=== PATIENT | female | born 1935 | race African-American/Black ===

== ENCOUNTER → 2017-10-08 | Outpatient (CLI) | payer MEDICARE, OTHER ==
--- NOTE | 2017-10-08 11:42 | CT ---
EXAMINATION TYPE: CT brain wo con DATE OF EXAM: 10/08/2017 COMPARISON: NONE HISTORY: Memory loss CT DLP: 961 mGycm Automated exposure control for dose reduction was used. FINDINGS: Moderate generalized degenerative change. There is diffuse periventricular hypoattenuation which is n onspecific but most typical remote microvascular ischemia. No midline shift. No acute hemorrhage. Berny varium intact. Intracranial atherosclerotic changes noted. IMPRESSION: THERE ARE GENERALIZED DEGENERATIVE CHANGE WITH DIFFUSE ABNORMAL DENSITY THROUGHOUT THE WHITE MATTER A ND A PATTERN WHICH IS NONSPECIFIC BUT MOST TYPICAL OF REMOTE WHITE MATTER ISCHEMIA.
== END | disposition home or self-care (01) ==
LOC: RADCTMAIN 11:16
PROVIDERS: ATTEND Internal Medicine
DX: G31.89 Other specified degenerative diseases of nervous system (principal); R90.82 White matter disease, unspecified
CPT/HCPCS: 70450

== ENCOUNTER → 2019-02-22 | Outpatient (CLI) | payer MEDICARE, OTHER ==
--- NOTE | 2019-02-22 17:27 | MR ---
EXAMINATION TYPE: MR brain wo/w con DATE OF EXAM: 02/22/2019 COMPARISON: Correlation CT 10/08/2017 HISTORY: 82-year-old female confusion, Memory loss, dementia, tumor TECHNIQUE: Multiplanar, multisequence images of the brain and brainstem were acquired before and aft er administration of 5 mL IV Gadavist. Diffusion weighted imaging is performed. FINDINGS: The technologist notes that the patient was confused and claustrophobic, fast brain protocol was util ized. No evidence for acute infarction, hemorrhage, mass, mass effect, midline shift, herniation, effacemen t of basal cisterns, or extra-axial fluid collection. There is moderate generalized supratentorial volume loss and mild ventricular prominence likely secon usman to central cerebral atrophy. T2/FLAIR weighted sequences show moderate to severe patchy and confluent white white matter change in both cerebral hemispheres involving the periventricular, deep, and subcortical regions. Major intracranial flow voids are intact. Midline structures demonstrate normal morphology. The craniocervical junction is normal. Post contrast images demonstrate no evidence of pathologic enhancement. Dural venous sinuses are pat ent. The visualized sinuses are clear and the globes are intact. IMPRESSION: 1. Moderate atrophy, similar to CT of 10/08/2017. 2. Patchy and confluent bright white matter change likely representing moderate to severe burden of c hronic small vessel ischemic disease. 3. No acute intracranial abnormality or enhancing intracranial lesion seen.
== END ==
LOC: RADMRIMAIN 13:42
PROVIDERS: ATTEND Psychiatry & Neurology Neurology
DX: C71.9 Malignant neoplasm of brain, unspecified (principal); I99.8 Other disorder of circulatory system
CPT/HCPCS: 70553; A9585

== ENCOUNTER 2021-07-19 15:48 | Emergency (ER) | payer MEDICARE, OTHER ==
--- NOTE | 2021-07-19 16:11 | ED ---
General Adult HPI - General Chief complaint: Urogenital Stated complaint: Blood in urine Time Seen by Provider: 07/19/21 15:53 Source: patient Mode of arrival: ambulatory Limitations: no limitations - History of Present Illness Initial comments: 86-year-old female with a history of dementia and renal disease presents to the emergency department, accompanied by guardian, for evaluation of blood in her urine 2 days. Patient denies abdominal pain, urinary discomfort, frequency, and urgency. Patient's guardian supplies context, details, and history of illness; reports good oral intake. Denies fever, chills, nausea, vomiting, back and flank pain. She does have a history of renal disease and is scheduled to see the heating element repairer next week. - Related Data Home Medications Medication Instructions Recorded Confirmed Atenolol [Tenormin] 50 mg PO DAILY 07/19/21 07/19/21 Cholecalciferol [Vitamin D3 (25 25 mcg PO DAILY 07/19/21 07/19/21 Mcg = 1000 Iu)] Donepezil [Aricept] 10 mg PO DAILY 07/19/21 07/19/21 Hydrochlorothiazide 12.5 mg PO DAILY 07/19/21 07/19/21 [hydroCHLOROthiazide] acetaZOLAMIDE [acetaZOLAMIDE ER] 500 mg PO BID 07/19/21 07/19/21 amLODIPine [Norvasc] 10 mg PO DAILY 07/19/21 07/19/21 calcitrioL [Calcitriol] 0.25 mcg PO TU 07/19/21 07/19/21 Previous Rx's Medication Instructions Recorded Cephalexin [Keflex] 500 mg PO Q6HR #40 cap 07/19/21 Allergies Allergy/AdvReac Type Severity Reaction Status Date / Time No Known Allergies Allergy Verified 07/19/21 16:46 Review of Systems ROS Statement: Those systems with pertinent positive or pertinent negative responses have been documented in the HPI. ROS Other: All systems not noted in ROS Statement are negative. Past Medical History Past Medical History: Dementia, Hypertension, Renal Disease History of Any Multi-Drug Resistant Organisms: None Reported Past Surgical History: No Surgical Hx Reported Past Psychological History: No Psychological Hx Reported Smoking Status: Never smoker Past Alcohol Use History: None Reported Past Drug Use History: None Reported General Exam Limitations: no limitations General appearance: alert, in no apparent distress, other (Patient is a poor historian with a history of dementia.) ENT exam: Present: normal exam, normal oropharynx, mucous membranes moist Respiratory exam: Present: normal lung sounds bilaterally. Absent: respiratory distress, wheezes, rales, rhonchi, stridor Cardiovascular Exam: Present: regular rate, normal rhythm, normal heart sounds. Absent: systolic murmur, diastolic murmur, rubs, gallop, clicks GI/Abdominal exam: Present: soft, normal bowel sounds. Absent: distended, tenderness, guarding, rebound, rigid Neurological exam: Present: alert Psychiatric exam: Present: normal affect, normal mood Skin exam: Present: warm, dry, intact, normal color Course Vital Signs 07/19/21 07/19/21 15:50 16:54 Temperature 98.4 F Pulse Rate 99 70 Respiratory 18 16 Rate Blood Pressure 189/113 O2 Sat by Pulse 98 99 Oximetry Medical Decision Making - Medical Decision Making 86-year-old female with a history of renal disease is evaluated for painless hematuria, 2 days in duration. No significant physical exam findings. Labs reviewed, elevation and BUN and creatinine appear baseline for patient. Urine shows moderate amount of blood with more white blood cells than red blood cells, and presence of bacteria therefore this is felt to be an infectious process. Patient will be discharged home on antibiotic and instructed to follow up with primary care provider for recheck in the next 1-2 days. Return parameter was discussed with patient's caregiver and guardian at bedside. She verbalizes understanding and agrees with this plan. This patient's case was discussed with my attending Dr. Isidro. - Lab Data Result diagrams: 07/19/21 16:42 07/19/21 16:42 Lab Results 07/19/21 07/19/21 07/19/21 Range/Units 16:42 16:42 16:42 WBC 4.2 (3.8-10.6) k/uL RBC 3.77 L (3.80-5.40) m/uL Hgb 11.7 (11.4-16.0) gm/dL Hct 36.2 (34.0-46.0) % MCV 95.8 (80.0-100.0) fL MCH 31.1 (25.0-35.0) pg MCHC 32.4 (31.0-37.0) g/dL RDW 13.3 (11.5-15.5) % Plt Count 166 (150-450) k/uL MPV 7.6 Neutrophils % 58 % Lymphocytes % 33 % Monocytes % 6 % Eosinophils % 1 % Basophils % 1 % Neutrophils # 2.4 (1.3-7.7) k/uL Lymphocytes # 1.4 (1.0-4.8) k/uL Monocytes # 0.2 (0-1.0) k/uL Eosinophils # 0.1 (0-0.7) k/uL Basophils # 0.0 (0-0.2) k/uL PT (9.0-12.0) sec INR (<1.2) APTT (22.0-30.0) sec Sodium 141 (137-145) mmol/L Potassium 4.2 (3.5-5.1) mmol/L Chloride 112 H (98-107) mmol/L Carbon Dioxide 23 (22-30) mmol/L Anion Gap 6 mmol/L BUN 19 H (7-17) mg/dL Creatinine 1.21 H (0.52-1.04) mg/dL Est GFR (CKD-EPI)AfAm 47 (>60 ml/min/1.73 sqM) Est GFR (CKD-EPI)NonAf 41 (>60 ml/min/1.73 sqM) Glucose 104 H (74-99) mg/dL Calcium 8.9 (8.4-10.2) mg/dL Total Bilirubin 0.4 (0.2-1.3) mg/dL AST 31 (14-36) U/L ALT 23 (4-34) U/L Alkaline Phosphatase 38 (38-126) U/L Total Protein 6.2 L (6.3-8.2) g/dL Albumin 3.0 L (3.5-5.0) g/dL Urine Color Light Yellow Urine Appearance Cloudy H (Clear) Urine pH 5.5 (5.0-8.0) Ur Specific [place] 1.014 (1.001-1.035) Urine Protein Negative (Negative) Urine Glucose (UA) Negative (Negative) Urine Ketones Negative (Negative) Urine Blood Moderate H (Negative) Urine Nitrite Negative (Negative) Urine Bilirubin Negative (Negative) Urine Urobilinogen <2.0 (<2.0) mg/dL Ur Leukocyte Esterase Large H (Negative) Urine RBC 16 H (0-5) /hpf Urine WBC 169 H (0-5) /hpf Urine WBC Clumps Few H (None) /hpf Ur Squamous Epith Cells 1 (0-4) /hpf Urine Bacteria Rare H (None) /hpf Urine Mucus Rare H (None) /hpf 07/19/21 Range/Units 17:58 WBC (3.8-10.6) k/uL RBC (3.80-5.40) m/uL Hgb (11.4-16.0) gm/dL Hct (34.0-46.0) % MCV (80.0-100.0) fL MCH (25.0-35.0) pg MCHC (31.0-37.0) g/dL RDW (11.5-15.5) % Plt Count (150-450) k/uL MPV Neutrophils % % Lymphocytes % % Monocytes % % Eosinophils % % Basophils % % Neutrophils # (1.3-7.7) k/uL Lymphocytes # (1.0-4.8) k/uL Monocytes # (0-1.0) k/uL Eosinophils # (0-0.7) k/uL Basophils # (0-0.2) k/uL PT 10.2 (9.0-12.0) sec INR 0.9 (<1.2) APTT 22.4 (22.0-30.0) sec Sodium (137-145) mmol/L Potassium (3.5-5.1) mmol/L Chloride (98-107) mmol/L Carbon Dioxide (22-30) mmol/L Anion Gap mmol/L BUN (7-17) mg/dL Creatinine (0.52-1.04) mg/dL Est GFR (CKD-EPI)AfAm (>60 ml/min/1.73 sqM) Est GFR (CKD-EPI)NonAf (>60 ml/min/1.73 sqM) Glucose (74-99) mg/dL Calcium (8.4-10.2) mg/dL Total Bilirubin (0.2-1.3) mg/dL AST (14-36) U/L ALT (4-34) U/L Alkaline Phosphatase (38-126) U/L Total Protein (6.3-8.2) g/dL Albumin (3.5-5.0) g/dL Urine Color Urine Appearance (Clear) Urine pH (5.0-8.0) Ur Specific [place] (1.001-1.035) Urine Protein (Negative) Urine Glucose (UA) (Negative) Urine Ketones (Negative) Urine Blood (Negative) Urine Nitrite (Negative) Urine Bilirubin (Negative) Urine Urobilinogen (<2.0) mg/dL Ur Leukocyte Esterase (Negative) Urine RBC (0-5) /hpf Urine WBC (0-5) /hpf Urine WBC Clumps (None) /hpf Ur Squamous Epith Cells (0-4) /hpf Urine Bacteria (None) /hpf Urine Mucus (None) /hpf Disposition Clinical Impression: Hematuria, Acute cystitis with hematuria Disposition: HOME SELF-CARE Condition: Stable Instructions (If sedation given, give patient instructions): Urinary Tract Infection in Women (ED), Hematuria (ED) Additional Instructions: Increase fluids and follow-up with Dr. Bergman as scheduled on the . Return to the emergency department with any new, worsening, or concerning symptoms. Prescriptions: Cephalexin [Keflex] 500 mg PO Q6HR #40 cap Is patient prescribed a controlled substance at d/c from ED?: No Referrals: Cecil Dick MD [Primary Care Provider] - 1-2 days Time of Disposition: 18:33
[2021-07-19 16:51] LABS: Basophils % (A) 1 %; Eosinophils # (A) 0.1 k/uL (0-0.7); Eosinophils % (A) 1 %; HCT 36.2 % (34.0-46.0); HGB 11.7 gm/dL (11.4-16.0); Lymphocytes # (A) 1.4 k/uL (1.0-4.8); Lymphocytes % (A) 33 %; MCH 31.1 pg (25.0-35.0); MCHC 32.4 g/dL (31.0-37.0); MCV 95.8 fL (80.0-100.0); Mean Platelet Volume 7.6; Monocytes # (A) 0.2 k/uL (0-1.0); Monocytes % (A) 6 %; Neutrophils # (A) 2.4 k/uL (1.3-7.7); Neutrophils % (A) 58 %; Platelet Count 166 k/uL (150-450); RBC 3.77 m/uL (3.80-5.40); RDW 13.3 % (11.5-15.5); WBC 4.2 k/uL (3.8-10.6)
[2021-07-19 16:59] LABS: Calcium 8.9 mg/dL (8.4-10.2); Potassium 4.2 mmol/L (3.5-5.1); Total Bilirubin 0.4 mg/dL (0.2-1.3); Total Protein 6.2 g/dL (6.3-8.2)
[2021-07-19 17:01] VITALS: RESP 16
[2021-07-19 17:52] LABS: Appearance,Urine Cloudy (Clear); Bacteria,Urine Rare /hpf; Bilirubin,Urine Negative (Negative); Blood,Urine Moderate (Negative); Color,Urine Light Yellow; Glucose,Urine (UA) Negative (Negative); Ketones,Urine Negative (Negative); Leukocyte Esterase,Urine Large (Negative); Mucus,Urine Rare /hpf; Nitrite,Urine Negative (Negative); PH, Urine 5.5 (5.0-8.0); Protein,Urine Negative (Negative); RBC,Urine 16 /hpf (0-5); Specific Gravity,Urine 1.014 (1.001-1.035); Squamous Epithelial Cell,Urine 1 /hpf (0-4); Urobilinogen,Urine <2.0 mg/dL (<2.0); WBC,Urine 169 /hpf (0-5)
[2021-07-19 18:09] LABS: INR 0.9 (<1.2); Prothrombin Time 10.2 sec (9.0-12.0)
[2021-07-19 18:10] LABS: Partial Thromboplastin Time 22.4 sec (22.0-30.0)
[2021-07-19 18:36] VITALS: BP 134/58; PULSE 71; TEMP 98.1
== END 2021-07-19 18:56 | disposition home or self-care (01) ==
LOC: EC 15:48
DX: N30.01 Acute cystitis with hematuria (principal); I10 Essential (primary) hypertension; F03.90 Unspecified dementia, unspecified severity, without behavioral disturbance, psychotic disturbance, mood disturbance, and anxiety; Z79.899 Other long term (current) drug therapy
CPT/HCPCS: 36415; 80053; 81001; 85025; 85610; 85730; 87086; 99283

== ENCOUNTER 2023-07-20 20:39 | Emergency (ER) | payer MEDICARE, OTHER ==
[2023-07-20 21:22] VITALS: RESP 18; TEMP 97.9
--- NOTE | 2023-07-20 22:58 | ED ---
Recheck HPI - General Chief Complaint: Recheck/Abnormal Lab/Rx Stated Complaint: HIGH BP Time Seen by Provider: 07/20/23 22:37 Source: family Mode of arrival: wheelchair Limitations: no limitations - History of Present Illness Initial Comments: 88-year-old female with history of advanced dementia, CKD, and hypertension presenting with chief complaint of elevated blood pressure. Patient lives at home with her granddaughter as her primary caregiver. Family states that the patient's systolic blood pressures ranged from 180-190 throughout the day. She was seen by her napping machine operator earlier today who advised them to report to the ER if this continued. Patient is a and O 0 at baseline. Family denies any vomiting, fever, diarrhea, any disturbance from baseline. - Related Data Home Medications Medication Instructions Recorded Confirmed Cholecalciferol [Vitamin D3 (25 25 mcg PO DAILY 07/19/21 07/19/21 Mcg = 1000 Iu)] Donepezil [Aricept] 10 mg PO DAILY 07/19/21 07/19/21 acetaZOLAMIDE [acetaZOLAMIDE ER] 500 mg PO BID 07/19/21 07/19/21 amLODIPine [Norvasc] 10 mg PO DAILY 07/19/21 07/19/21 atenoloL [Tenormin] 50 mg PO DAILY 07/19/21 07/19/21 calcitrioL [Calcitriol] 0.25 mcg PO TU 07/19/21 07/19/21 hydroCHLOROthiazide 12.5 mg PO DAILY 07/19/21 07/19/21 Previous Rx's Medication Instructions Recorded Cephalexin [Keflex] 500 mg PO Q6HR #40 cap 07/19/21 Allergies Allergy/AdvReac Type Severity Reaction Status Date / Time No Known Allergies Allergy Verified 07/20/23 21:18 Review of Systems ROS Statement: Those systems with pertinent positive or pertinent negative responses have been documented in the HPI. ROS Other: All systems not noted in ROS Statement are negative. Past Medical History Past Medical History: Dementia, Hypertension, Renal Disease History of Any Multi-Drug Resistant Organisms: None Reported Past Surgical History: No Surgical Hx Reported Past Psychological History: No Psychological Hx Reported Smoking Status: Never smoker Past Alcohol Use History: None Reported Past Drug Use History: None Reported General Exam Limitations: altered mental status (Baseline) Head exam: Present: atraumatic, normocephalic, normal inspection Eye exam: Present: normal appearance Neck exam: Present: normal inspection Respiratory exam: Present: normal lung sounds bilaterally. Absent: respiratory distress, wheezes, rales, rhonchi, stridor Cardiovascular Exam: Present: regular rate, normal rhythm, normal heart sounds. Absent: systolic murmur, diastolic murmur, rubs, gallop, clicks Neurological exam: Present: altered (Baseline) Skin exam: Present: warm, dry, intact, normal color. Absent: rash Course Vital Signs 07/20/23 07/20/23 07/20/23 21:16 22:46 23:58 Temperature 97.9 F Pulse Rate 60 61 68 Respiratory 18 18 18 Rate Blood Pressure 186/105 166/102 161/90 O2 Sat by Pulse 96 93 L 95 Oximetry Medical Decision Making - Medical Decision Making Sinus rhythm ventricular rate 64. [place] interval 159. QRS 90. QTC 423. QTC 433. Was pt. sent in by a medical professional or institution (, PA, AUTOMATIC CASTING MACHINE OPERATOR, urgent care, hospital, or long term...) When possible be specific @ -No Did you speak to anyone other than the patient for history (EMS, parent, family, police, friend...)? What history was obtained from this source @ -History is obtained from family at bedside Did you review nursing and triage notes (agree or disagree)? Why? @ -I reviewed and agree with nursing and triage notes Were old charts reviewed (outside hosp., previous admission, EMS record, old EKG, old radiological studies, urgent care reports/EKG's, long term records)? Report findings @ -No old charts were reviewed Differential Diagnosis (chest pain, altered mental status, abdominal pain women, abdominal pain men, vaginal bleeding, weakness, fever, dyspnea, syncope, headache, dizziness, GI bleed, back pain, seizure, CVA, palpatations, mental health, musculoskeletal)? @ -Differential includes ACS, acute on chronic kidney disease, pain, this is not an all inclusive last EKG interpreted by me (3pts min.). @ -Sinus rhythm ventricular rate 64. [place] interval 159. QRS 90. QTC 423. QTC 433. X-rays interpreted by me (1pt min.). @ -No acute cardiopulmonary process CT interpreted by me (1pt min.). @ -None done U/S interpreted by me (1pt. min.). @ -None done What testing was considered but not performed or refused? (CT, X-rays, U/S, labs)? Why? @ -None What meds were considered but not given or refused? Why? @ -None Did you discuss the management of the patient with other professionals (professionals i.e. , PA, AUTOMATIC CASTING MACHINE OPERATOR, lab, RT, psych nurse, social work program coordinator, soda dialyzer, teacher, development officer, rehabilitation caseworker)? Give summary @ -No Was smoking cessation discussed for >3mins.? @ -No Was critical care preformed (if so, how long)? @ -No Were there social determinants of health that impacted care today? How? (Homelessness, low income, unemployed, alcoholism, drug addiction, transp ortation, low edu. Level, literacy, decrease access to med. care, alf, rehab)? @ -No Was there de-escalation of care discussed even if they declined (Discuss DNR or withdrawal of care, Hospice)? DNR status @ -No What co-morbidities impacted this encounter? (DM, HTN, Smoking, COPD, CAD, Cancer, CVA, ARF, Chemo, Hep., AIDS, mental health diagnosis, sleep apnea, morbid obesity)? @ -Dementia, chronic kidney disease, hypertension Was patient admitted / discharged? Hospital course, mention meds given and route, prescriptions, significant lab abnormalities, going to OR and other pertinent info. @ -88-year-old female presenting with chief complaint of elevated blood pressure reported by her family members. Physical examination is conducted. Lab work shows no leukocytosis or anemia. BUN 24 creatinine 1.03 and GFR 49, slightly improved from her baseline. Negative chest x-ray and EKG. Her blood pressure has remained stable in the 160s systolic during this time. Patient is to follow-up with PCP, family is educated on today's findings and treatment plan. Follow-up with PCP. Report back to ER with any new or worsening symptoms. Discussed return parameters and answered all questions. Patient's family conveyed verbal understanding and agreed to the plan. I discussed this case in detail with my attending Dr. Alvarado Undiagnosed new problem with uncertain prognosis? @ -No Drug Therapy requiring intensive monitoring for toxicity (Heparin, Nitro, Insulin, Cardizem)? @ -No Were any procedures done? @ -No Diagnosis/symptom? @ Hypertension Acute, or Chronic, or Acute on Chronic? @ -Acute on chronic Uncomplicated (without systemic symptoms) or Complicated (systemic symptoms)? @ -Uncomplicated Side effects of treatment? @ -No Exacerbation, Progression, or Severe Exacerbation? @ -No Poses a threat to life or bodily function? How? (Chest pain, [place], LA, pneumonia, PE, COPD, DKA, ARF, appy, cholecystitis, CVA, Diverticulitis, Homicidal, Suicidal, threat to staff... and all critical care pts) @ -Low immediate likelihood - Lab Data Result diagrams: 07/20/23 22:52 07/20/23 22:52 Lab Results 07/20/23 07/20/23 Range/Units 22:52 22:52 WBC 5.0 (3.8-10.6) k/uL RBC 3.95 (3.80-5.40) m/uL Hgb 12.8 (11.4-16.0) gm/dL Hct 37.9 (34.0-46.0) % MCV 96.0 (80.0-100.0) fL MCH 32.3 (25.0-35.0) pg MCHC 33.7 (31.0-37.0) g/dL RDW 13.0 (11.5-15.5) % Plt Count 193 (150-450) k/uL MPV 7.7 Neutrophils % 74 % Lymphocytes % 19 % Monocytes % 5 % Eosinophils % 1 % Basophils % 0 % Neutrophils # 3.7 (1.3-7.7) k/uL Lymphocytes # 0.9 L (1.0-4.8) k/uL Monocytes # 0.2 (0-1.0) k/uL Eosinophils # 0.1 (0-0.7) k/uL Basophils # 0.0 (0-0.2) k/uL Sodium 135 L (137-145) mmol/L Potassium 4.1 (3.5-5.1) mmol/L Chloride 105 (98-107) mmol/L Carbon Dioxide 22 (22-30) mmol/L Anion Gap 8 mmol/L BUN 24 H (7-17) mg/dL Creatinine 1.03 (0.52-1.04) mg/dL Est GFR (CKD-EPI)AfAm 56 (>60 ml/min/1.73 sqM) Est GFR (CKD-EPI)NonAf 49 (>60 ml/min/1.73 sqM) Glucose 166 H (74-99) mg/dL Calcium 9.1 (8.4-10.2) mg/dL Magnesium 1.9 (1.6-2.3) mg/dL Total Bilirubin 0.6 (0.2-1.3) mg/dL AST 32 (14-36) U/L ALT 19 (4-34) U/L Alkaline Phosphatase 44 (38-126) U/L Total Protein 6.7 (6.3-8.2) g/dL Albumin 3.4 L (3.5-5.0) g/dL Disposition Clinical Impression: Hypertension Disposition: HOME SELF-CARE Condition: Fair Instructions (If sedation given, give patient instructions): Hypertension (ED) Additional Instructions: Follow-up with PCP. Report back to ER with any new or worsening symptoms. Is patient prescribed a controlled substance at d/c from ED?: No Referrals: Favian Madison DO [Primary Care Provider] - 1-2 days Time of Disposition: 00:20
[2023-07-20 23:23] LABS: Basophils % (A) 0 %; Eosinophils # (A) 0.1 k/uL (0-0.7); Eosinophils % (A) 1 %; HCT 37.9 % (34.0-46.0); HGB 12.8 gm/dL (11.4-16.0); Lymphocytes # (A) 0.9 k/uL (1.0-4.8); Lymphocytes % (A) 19 %; MCH 32.3 pg (25.0-35.0); MCHC 33.7 g/dL (31.0-37.0); Mean Platelet Volume 7.7; Monocytes # (A) 0.2 k/uL (0-1.0); Monocytes % (A) 5 %; Neutrophils # (A) 3.7 k/uL (1.3-7.7); Neutrophils % (A) 74 %; Platelet Count 193 k/uL (150-450); RBC 3.95 m/uL (3.80-5.40)
[2023-07-20 23:33] LABS: ALT 19 U/L (4-34); AST 32 U/L (14-36); African American GFR (CKD) 56 (>60 ml/min/1.73 sqM); Albumin 3.4 g/dL (3.5-5.0); Alkaline Phosphatase 44 U/L (38-126); Anion Gap 8 mmol/L; Blood Urea Nitrogen 24 mg/dL (7-17); Calcium 9.1 mg/dL (8.4-10.2); Carbon Dioxide 22 mmol/L (22-30); Chloride 105 mmol/L (98-107); Glucose 166 mg/dL (74-99); Magnesium 1.9 mg/dL (1.6-2.3); Non-African American GFR(CKD) 49 (>60 ml/min/1.73 sqM); Potassium 4.1 mmol/L (3.5-5.1); Sodium 135 mmol/L (137-145); Total Bilirubin 0.6 mg/dL (0.2-1.3); Total Protein 6.7 g/dL (6.3-8.2)
[2023-07-21 00:01] VITALS: BP 161/90; PULSE 68
--- NOTE | 2023-07-21 02:35 | XR ---
EXAM: XR Chest, 2 Views CLINICAL HISTORY: ITS.REASON XR Reason: HTN TECHNIQUE: Frontal and lateral views of the chest. COMPARISON: No relevant prior studies available. FINDINGS: Lungs: No consolidation or mass. Pleural space: No effusion. Heart: Mild cardiomegaly. Bones/joints: No acute findings. IMPRESSION: No acute cardiopulmonary process.
== END 2023-07-21 00:33 | disposition home or self-care (01) ==
LOC: EC 20:39
DX: I10 Essential (primary) hypertension (principal); Z79.899 Other long term (current) drug therapy
CPT/HCPCS: 36415; 71046; 80053; 83735; 85025; 93005; 99283

== ENCOUNTER → 2023-12-23 | Outpatient (CLI) | payer MEDICARE, OTHER ==
--- NOTE | 2023-12-24 07:44 | US ---
EXAMINATION TYPE: US kidneys/renal and bladder DATE OF EXAM: 12/23/2023 COMPARISON: NONE CLINICAL INDICATION: Female, 88 years old with history of N18.32 CHRONIC KIDNEY DISEASE, STAGE 3B; CK D stage 3B. EXAM MEASUREMENTS: Right Kidney: 8.2 x 3.8 x 3.6 cm Left Kidney: 8.4 x 4.3 x 4.4 cm *Exam is limited due to small patient body habitus/small rib spaces. Right Kidney: Small in size. Prominent right renal pelvis. Left Kidney: Small in size. Images taken prone. Prominent left renal pelvis. *Complex area seen upper pole: 2.8 x 2.2 x 1.9 cm. Hyperechoic focus seen lower pole: 0.4 x 0.5 x 0.3 cm. Bladder: There appears to be possible right bladder diverticulum/septation. *Internal echoes/debris seen within, hypoechoic material seen right bladder measures: 3.7 x 4.3 x 3.5 cm. Additional debris seen throughout bladder. Bilateral Jets seen: Yes *Ascites seen within the RUQ. IMPRESSION: 1. Complex cystic lesion upper pole left kidney. Further evaluation with contrast CT and/or MRI is ad vised. 2. Diminutive kidneys. 3. 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
== END | disposition home or self-care (01) ==
LOC: RADUSWWP 15:18
PROVIDERS: ATTEND Internal Medicine Nephrology
DX: N18.32 Chronic kidney disease, stage 3b (principal); N32.3 Diverticulum of bladder
CPT/HCPCS: 76770

== ENCOUNTER → 2024-01-20 | Outpatient (CLI) | payer MEDICARE, OTHER ==
--- NOTE | 2024-01-21 12:21 | CA ---
Transthoracic Echo Report Name: Lenka Wyatt Age: 88 Gender: F : 1935 Exam Date: 01/20/2024 15:46 Exam Location: [place] [facility] Ht (in): 60 Wt (lb): 72 Ordering Physician: Favian Madison DO Attending/Referring Phys: Varsha Alford [facility] Family Specialist Vito Amado RDCS Procedure CPT: Indications: R06.00 DYSPNEA, UNSPECIFIED Cardiac Hx: Technical Quality: Technically difficult study Contrast 1: Total Dose (mL): Contrast 2: Total Dose (mL): MEASUREMENTS (Male / Female) Normal Values 2D ECHO LV Diastolic Diameter PLAX 3.3 cm 4.2 - 5.9 / 3.9 - 5.3 cm LV Systolic Diameter PLAX 1.9 cm IVS Diastolic Thickness 1.2 cm 0.6 - 1.0 / 0.6 - 0.9 cm LVPW Diastolic Thickness 0.9 cm 0.6 - 1.0 / 0.6 - 0.9 cm LV Relative Wall Thickness 0.6 LVOT Diameter 1.9 cm Aortic Root Diameter 3.3 cm LA Systolic Diameter LX 3.1 cm 3.0 - 4.0 / 2.7 - 3.8 cm DOPPLER AV Peak Velocity 81.8 cm/s AV Peak Gradient 2.7 mmHg AV Mean Velocity 58.7 cm/s AV Mean Gradient 1.5 mmHg AV Velocity Time Integral 17.3 cm LVOT Peak Velocity 77.5 cm/s LVOT Peak Gradient 2.4 mmHg LVOT Velocity Time Integral 15.6 cm LVOT Stroke Volume 44.0 cm??? LVOT Stroke Volume Index 36.4 ml/m??? LVOT Cardiac Index 2920.1 cm???/min???m??? AV Area Cont Eq vti 2.5 cm??? AV Area Cont Eq pk 2.7 cm??? Mitral E Point Velocity 70.7 cm/s Mitral A Point Velocity 103.1 cm/s Mitral E to A Ratio 0.7 MV Deceleration Time 137.6 ms MV E' Velocity 5.7 cm/s Mitral E to MV E' Ratio 12.3 TR Peak Velocity 245.7 cm/s TR Peak Gradient 24.2 mmHg PV Peak Velocity 56.0 cm/s PV Peak Gradient 1.3 mmHg FINDINGS Left Ventricle Mildly increased septal wall thickness. Left ventricular ejection fraction is estimated at 55%. Moderate concentric left ventricular hypertrophy. Right Ventricle Mild right ventricular dilatation. Right ventricular systolic pressure estimated at 30 mmhg. Right Atrium Mild right atrial dilatation. Left Atrium Normal left atrial size. Mitral Valve Mild mitral regurgitation. Aortic Valve No aortic valve stenosis or regurgitation. Tricuspid Valve Mild tricuspid regurgitation. Pulmonic Valve Moderate pulmonic regurgitation. Pericardium No pericardial effusion. Aorta Normal size aortic root and proximal ascending aorta. CONCLUSIONS Left ventricular EF 55% Mild increased left ventricular wall thickness RVSP 30 Mild mitral regurgitation Moderate pulmonic regurgitation No pericardial effusion Previewed by: Dr. Teja Hall DO (Electronically Signed) Final Date: 21 January 2024 12:20
== END | disposition home or self-care (01) ==
LOC: RADECHMAIN 16:39
PROVIDERS: ATTEND Family Medicine
DX: I34.0 Nonrheumatic mitral (valve) insufficiency (principal); I51.7 Cardiomegaly; I37.1 Nonrheumatic pulmonary valve insufficiency; R06.00 Dyspnea, unspecified
CPT/HCPCS: 93306

== ENCOUNTER 2024-08-06 19:06 | Emergency (ER) | payer MEDICARE, OTHER ==
[2024-08-06 19:38] VITALS: RESP 18
[2024-08-06 19:45] VITALS: TEMP 98.3
--- NOTE | 2024-08-06 20:27 | ED ---
General Adult HPI - General Chief complaint: Nausea/Vomiting/Diarrhea Stated complaint: NVD Time Seen by Provider: 08/06/24 19:47 Source: EMS Mode of arrival: EMS Limitations: altered mental status - History of Present Illness Initial comments: 89-year-old female brought in by her family after an episode of vomiting. Patient has history of advanced dementia, A&O x 0 at baseline. Family states that they fed her dinner and shortly after she had an episode of vomiting, this was followed by a brief episode of what seemed to be loss of consciousness as th e patient would not respond to them for about 30 seconds and they state that her eyes "rolled in the back of her head". Family is concerned for possible aspiration. Patient has had no continued difficulty breathing since then. Family denies any cough or other URI-like symptoms recently. patient has had no recent complaints of nausea. - Related Data Home Medications Medication Instructions Recorded Confirmed Cholecalciferol [Vitamin D3 (25 25 mcg PO DAILY 07/19/21 07/19/21 Mcg = 1000 Iu)] Donepezil [Aricept] 10 mg PO DAILY 07/19/21 07/19/21 acetaZOLAMIDE [acetaZOLAMIDE ER] 500 mg PO BID 07/19/21 07/19/21 amLODIPine [Norvasc] 10 mg PO DAILY 07/19/21 07/19/21 atenoloL [Tenormin] 50 mg PO DAILY 07/19/21 07/19/21 calcitrioL 0.25 mcg PO TU 07/19/21 07/19/21 hydroCHLOROthiazide 12.5 mg PO DAILY 07/19/21 07/19/21 Previous Rx's Medication Instructions Recorded Cephalexin [Keflex] 500 mg PO Q6HR #40 cap 07/19/21 Allergies Allergy/AdvReac Type Severity Reaction Status Date / Time No Known Allergies Allergy Verified 08/06/24 19:38 Review of Systems ROS Statement: Those systems with pertinent positive or pertinent negative responses have been documented in the HPI. ROS Other: All systems not noted in ROS Statement are negative. Past Medical History Past Medical History: Dementia, Hypertension, Renal Disease History of Any Multi-Drug Resistant Organisms: None Reported Past Surgical History: No Surgical Hx Reported Past Psychological History: No Psychological Hx Reported Smoking Status: Never smoker Past Alcohol Use History: None Reported Past Drug Use History: None Reported General Exam Limitations: altered mental status General appearance: alert, in no apparent distress Head exam: Present: atraumatic, normocephalic Eye exam: Present: normal appearance Neck exam: Present: normal inspection Respiratory exam: Present: normal lung sounds bilaterally. Absent: respiratory distress, wheezes, rales, rhonchi, stridor Cardiovascular Exam: Present: regular rate, normal rhythm, normal heart sounds. Absent: systolic murmur, diastolic murmur, rubs, gallop, clicks Neurological exam: Present: alert, altered Skin exam: Present: normal color Course Vital Signs 08/06/24 08/06/24 08/06/24 19:31 20:38 21:15 Temperature 98.3 F Pulse Rate 70 67 96 Respiratory 18 18 18 Rate Blood Pressure 194/112 169/102 165/102 O2 Sat by Pulse 100 96 99 Oximetry 08/06/24 22:27 Temperature Pulse Rate 94 Respiratory 18 Rate Blood Pressure 158/99 O2 Sat by Pulse 98 Oximetry Medical Decision Making - Medical Decision Making Was pt. sent in by a medical professional or institution (Dr. PA, MATERIAL PLANNING ANALYST, urgent care, hospital, or assisted...) When possible be specific @ -[No] Did you speak to anyone other than the patient for history (EMS, parent, family, police, friend...)? What history was obtained from this source @ -History obtained from family Did you review nursing and triage notes (agree or disagree)? Why? @ -[I reviewed and agree with nursing and triage notes] Were old charts reviewed (outside hosp., previous admission, EMS record, old EKG, old radiological studies, urgent care reports/EKG's, assisted records)? Report findings @ -[No old charts were reviewed] Differential Diagnosis (chest pain, altered mental status, abdominal pain women, abdominal pain men, vaginal bleeding, weakness, fever, dyspnea, syncope, headache, dizziness, GI bleed, back pain, seizure, CVA, palpatations, mental health, musculoskeletal)? @ -Differential includes gastroenteritis, gastroparesis, pancreatitis, bowel o bstruction, this is not an all-inclusive list EKG interpreted by me (3pts min.). @ -[As above] X-rays interpreted by me (1pt min.). @ -Chest x-ray shows chronic changes without acute pulmonary process. No significant change from prior CT interpreted by me (1pt min.). @ -[None done] U/S interpreted by me (1pt. min.). @ -[None done] What testing was considered but not performed or refused? (CT, X-rays, U/S, labs)? Why? @ -[None] What meds were considered but not given or refused? Why? @ -[None] Did you discuss the management of the patient with other professionals (professionals i.e. Dr., PA, MATERIAL PLANNING ANALYST, lab, RT, psych nurse, social work job titles, torch straightener, teacher, environmental technical officer, case investigator)? Give summary @ -[No] Was smoking cessation discussed for >3mins.? @ -[No] Was critical care preformed (if so, how long)? @ -[No] Were there social determinants of health that impacted care today? How? (H omelessness, low income, unemployed, alcoholism, drug addiction, transportation, low edu. Level, literacy, decrease access to med. care, detention, rehab)? @ -[No] Was there de-escalation of care discussed even if they declined (Discuss DNR or withdrawal of care, Hospice)? DNR status @ -[No] What co-morbidities impacted this encounter? (DM, HTN, Smoking, COPD, CAD, Cancer, CVA, ARF, Chemo, Hep., AIDS, mental health diagnosis, sleep apnea, morbid obesity)? @ -[None] Was patient admitted / discharged? Hospital course, mention meds given and route, prescriptions, significant lab abnormalities, going to OR and other pertinent info. @ -89-year-old female brought in by her family after an episode of vomiting at home. After eating dinner she vomited and they state that she had a 30 second episode where they are concerned she may have lost consciousness. She has not had any continued difficulty breathing or any other symptoms. Heart and lungs are clear to auscultation. Patient shows no increased respiratory effort. Patient initially hypertensive, she had gotten her blood pressure medication shortly before vomiting and they are not confident that she kept it down long enough. Initial blood pressure 194/112. Patient given 5 mg of hydralazine and blood pressure improved to 158/99 Amylase elevated at 247, likely due to episode of vomiting. Lipase is WNL. Chest x-ray shows chronic changes with no acute process. On reassessment the patient continues to have no difficulty breathing on room air. Family is educated on today's findings and on warning signs for potential development of aspiration pneumonia. Discharged. Follow-up with PCP. Report back to ER with any new or worsening symptoms. Discussed return parameters and answered all questions. Patient conveyed verbal understanding and agreed to the plan. I discussed this case in detail with my attending Dr. Clark Undiagnosed new problem with uncertain prognosis? @ -[No] Drug Therapy requiring intensive monitoring for toxicity (Heparin, Nitro, Insulin, Cardizem)? @ -[No] Were any procedures done? @ -[No] Diagnosis/symptom? @ -Vomiting Acute, or Chronic, or Acute on Chronic? @ -Acute Uncomplicated (without systemic symptoms) or Complicated (systemic symptoms)? @ -Uncomplicated Side effects of treatment? @ -[No] Exacerbation, Progression, or Severe Exacerbation? @ -[No] Poses a threat to life or bodily function? How? (Chest pain, USA, IA, pneumonia, PE, COPD, DKA, ARF, appy, cholecystitis, CVA, Diverticulitis, Homicidal, Suicidal, threat to staff... and all critical care pts) @ -Low likelihood - Lab Data Result diagrams: 08/06/24 20:28 08/06/24 20:28 Lab Results 08/06/24 08/06/24 Range/Units 20:28 20:28 WBC 7.1 (3.8-10.6) k/uL RBC 3.85 (3.80-5.40) m/uL Hgb 12.2 (11.4-16.0) gm/dL Hct 38.2 (34.0-46.0) % MCV 99.2 (80.0-100.0) fL MCH 31.7 (25.0-35.0) pg MCHC 32.0 (31.0-37.0) g/dL RDW 13.3 (11.5-15.5) % Plt Count 131 L (150-450) k/uL MPV 8.7 Neutrophils % 88 % Lymphocytes % 7 % Monocytes % 4 % Eosinophils % 1 % Basophils % 0 % Neutrophils # 6.2 (1.3-7.7) k/uL Lymphocytes # 0.5 L (1.0-4.8) k/uL Monocytes # 0.3 (0-1.0) k/uL Eosinophils # 0.1 (0-0.7) k/uL Basophils # 0.0 (0-0.2) k/uL Hypochromasia Slight Sodium 137 (137-145) mmol/L Potassium 5.0 (3.5-5.1) mmol/L Chloride 109 H (98-107) mmol/L Carbon Dioxide 26 (22-30) mmol/L Anion Gap 2 mmol/L BUN 22 H (7-17) mg/dL Creatinine 1.02 (0.52-1.04) mg/dL Est GFR (CKD-EPI)AfAm 57 (>60 ml/min/1.73 sqM) Est GFR (CKD-EPI)NonAf 49 (>60 ml/min/1.73 sqM) Glucose 165 H (74-99) mg/dL Calcium 8.3 L (8.4-10.2) mg/dL Total Bilirubin 1.1 (0.2-1.3) mg/dL AST 45 H (14-36) U/L ALT 13 (4-34) U/L Alkaline Phosphatase 41 (38-126) U/L Total Protein 5.9 L (6.3-8.2) g/dL Albumin 3.0 L (3.5-5.0) g/dL Amylase 247 H (30-110) U/L Lipase 268 (23-300) U/L Disposition Clinical Impression: Vomiting Disposition: HOME SELF-CARE Condition: Good Instructions (If sedation given, give patient instructions): Acute Nausea and Vomiting (ED) Additional Instructions: Follow-up with PCP. Report back to ER with any new or worsening symptoms. Is patient prescribed a controlled substance at d/c from ED?: No Referrals: Favian Madison DO [Primary Care Provider] - 1-2 days Time of Disposition: 21:55
[2024-08-06] MEDS: ONDANSETRON 4 MG/2 ML VIAL IVP STA (20:39)
[2024-08-06] MEDS: SODIUM CHLORIDE 0.9% 500 ML 500 ML IV STA (20:39)
[2024-08-06] MEDS: hydrALAZINE HCL 20 MG/ML 1 ML VIAL IVP STA (20:42)
[2024-08-06 20:47] LABS: Basophils % (A) 0 %; Eosinophils # (A) 0.1 k/uL (0-0.7); Eosinophils % (A) 1 %; HCT 38.2 % (34.0-46.0); HGB 12.2 gm/dL (11.4-16.0); Hypochromasia Slight; Lymphocytes # (A) 0.5 k/uL (1.0-4.8); Lymphocytes % (A) 7 %; MCH 31.7 pg (25.0-35.0); MCV 99.2 fL (80.0-100.0); Mean Platelet Volume 8.7; Monocytes # (A) 0.3 k/uL (0-1.0); Monocytes % (A) 4 %; Neutrophils # (A) 6.2 k/uL (1.3-7.7); Neutrophils % (A) 88 %; Platelet Count 131 k/uL (150-450); RBC 3.85 m/uL (3.80-5.40); RDW 13.3 % (11.5-15.5); WBC 7.1 k/uL (3.8-10.6)
[2024-08-06 21:07] LABS: ALT 13 U/L (4-34); African American GFR (CKD) 57 (>60 ml/min/1.73 sqM); Amylase 247 U/L (30-110); Anion Gap 2 mmol/L; Blood Urea Nitrogen 22 mg/dL (7-17); Calcium 8.3 mg/dL (8.4-10.2); Carbon Dioxide 26 mmol/L (22-30); Chloride 109 mmol/L (98-107); Glucose 165 mg/dL (74-99); Lipase 268 U/L (23-300); Non-African American GFR(CKD) 49 (>60 ml/min/1.73 sqM); Sodium 137 mmol/L (137-145); Total Bilirubin 1.1 mg/dL (0.2-1.3); Total Protein 5.9 g/dL (6.3-8.2)
--- NOTE | 2024-08-06 21:31 | XR ---
EXAMINATION TYPE: XR chest 1V portable DATE OF EXAM: 08/06/2024 8:56 PM CLINICAL INDICATION: Female, 89 years old with history of Possible aspiration; [facility] COMPARISON: Chest radiographs from 07/20/2023 TECHNIQUE: XR chest 1V portable Frontal view of the chest. FINDINGS: Lungs/Pleura: Prominent interstitial lung markings are seen scattered throughout the lungs with bibi ening of the diaphragm and increased lucency of the lung apices. No evidence of focal consolidation, pneumothorax or pleural effusion. Pulmonary vascularity: Unremarkable. Heart/mediastinum: Cardiomediastinal silhouette is unremarkable. Musculoskeletal: No acute osseous pathology. IMPRESSION: Chronic changes without acute pulmonary process. No significant change from prior. [facility], , 08/06/2024 9:29 PM
[2024-08-06 21:34] LABS: AST 45 U/L (14-36); Alkaline Phosphatase 41 U/L (38-126)
[2024-08-06 22:29] VITALS: BP 158/99; PULSE 94
== END 2024-08-06 22:36 | disposition home or self-care (01) ==
LOC: EC 19:06
DX: R11.2 Nausea with vomiting, unspecified (principal)
CPT/HCPCS: 36415; 80053; 82150; 83690; 85025; 71045; 99285; 96374; 96375; J0360; J2405

== ENCOUNTER 2024-12-23 23:30 | Observation (INO) | payer MEDICARE, OTHER ==
[2024-12-23 23:42] LABS: Glucose,Whole Blood 110 mg/dL (70-110)
--- NOTE | 2024-12-24 00:25 | ED ---
General Adult HPI - General Chief complaint: Syncope Stated complaint: Syncope Time Seen by Provider: 12/24/24 00:23 Source: family (grandson), EMS, RN notes reviewed, old records reviewed, Caregiver Mode of arrival: EMS Limitations: no limitations - History of Present Illness Initial comments: 89-year-old female presented to the ER via EMS for evaluation of syncope. Guardian providing most of HPI as patient is ANO x 0 at baseline. Guardian reports patient has been having diarrhea for "a while". She states this is normal for her. Over the past couple days patient has been also having nausea and vomiting. She states today while attempting to use the bathroom she believed patient had a syncopal episode while on the toilet. Patient did not fall off the toilet. Guardian reports she was sitting on the toilet and not responding as normal. No head injury. She currently states patient is at baseline. Guardian denies any recent fevers, cough, congestion, difficulty breathing/wheezing. She denies any indications of abdominal pain. Patient's grandson, at bedside, is very confrontational and requesting that he or guardian is physically present for all testing and procedures. - Related Data Home Medications Medication Instructions Recorded Confirmed Cholecalciferol [Vitamin D3 (25 25 mcg PO DAILY 07/19/21 07/19/21 Mcg = 1000 Iu)] Donepezil [Aricept] 10 mg PO DAILY 07/19/21 07/19/21 acetaZOLAMIDE [acetaZOLAMIDE ER] 500 mg PO BID 07/19/21 07/19/21 amLODIPine [Norvasc] 10 mg PO DAILY 07/19/21 07/19/21 atenoloL [Tenormin] 50 mg PO DAILY 07/19/21 07/19/21 calcitrioL 0.25 mcg PO TU 07/19/21 07/19/21 hydroCHLOROthiazide 12.5 mg PO DAILY 07/19/21 07/19/21 Previous Rx's Medication Instructions Recorded Cephalexin [Keflex] 500 mg PO Q6HR #40 cap 07/19/21 Allergies Allergy/AdvReac Type Severity Reaction Status Date / Time No Known Allergies Allergy Verified 12/23/24 23:54 Review of Systems ROS Statement: Those systems with pertinent positive or pertinent negative responses have been documented in the HPI. ROS Other: All systems not noted in ROS Statement are negative. Past Medical History Past Medical History: Dementia, Hypertension, Renal Disease History of Any Multi-Drug Resistant Organisms: None Reported Past Surgical History: No Surgical Hx Reported Past Psychological History: No Psychological Hx Reported Smoking Status: Never smoker Past Alcohol Use History: None Reported Past Drug Use History: None Reported General Exam Limitations: altered mental status (ANO x 0 at baseline), physical limitation (Extremely contracted) General appearance: in no apparent distress, cachectic (extremely rigid) Respiratory exam: Present: normal lung sounds bilaterally. Absent: respiratory distress, wheezes, rales, rhonchi, stridor Cardiovascular Exam: Present: regular rate, normal rhythm, normal heart sounds. Absent: systolic murmur, diastolic murmur, rubs, gallop, clicks GI/Abdominal exam: Present: soft, tenderness (generalized), normal bowel sounds Extremities exam: Present: normal capillary refill, other (Bilateral upper and lower extremities are contracted.). Absent: tenderness, pedal edema, joint swelling, calf tenderness Neurological exam: Present: altered (ANO x 0 at baseline. Patient does grimace and respond to pain.) Skin exam: Present: dry, intact, normal color Course Vital Signs 12/23/24 12/23/24 12/24/24 23:31 23:54 02:00 Temperature 97.6 F Pulse Rate 77 95 Respiratory 16 14 Rate Blood Pressure 114/71 114/74 128/74 O2 Sat by Pulse 94 L 97 Oximetry 12/24/24 03:00 Temperature Pulse Rate 97 Respiratory 14 Rate Blood Pressure 106/75 O2 Sat by Pulse 98 Oximetry - Reevaluation(s) Reevaluation #1: 12/24/24 03:50 Case discussed with [facility] for admission. Medical Decision Making - Medical Decision Making Was pt. sent in by a medical professional or institution (, PA, RANGE TECHNICIAN, urgent care, hospital, or care home...) When possible be specific @ -No Did you speak to anyone other than the patient for history (EMS, parent, family, police, friend...)? What history was obtained from this source @ -Patient's guardian and grandson, at bedside, providing HPI and past medical history in its entirety. Did you review nursing and triage notes (agree or disagree)? Why? @ -I reviewed and agree with nursing and triage notes Were old charts reviewed (outside hosp., previous admission, EMS record, old EKG, old radiological studies, urgent care reports/EKG's, care home records)? Report findings @ -No old charts were reviewed Differential Diagnosis (chest pain, altered mental status, abdominal pain women, abdominal pain men, vaginal bleeding, weakness, fever, dyspnea, syncope, headache, dizziness, GI bleed, back pain, seizure, CVA, palpatations, mental health, musculoskeletal)? @ -Differential Syncope:Valvular disease, hypertrophic cardiomyopathy, pulmonary embolism, tamponade, tachycardia, bradycardia, DC, hypovolemia, hemorrhage, dissection, anemia, intracranial hemorrhage, seizure, hypoglycemia, carbon monoxide poisoning, this is not meant to be an all-inclusive list. EKG interpreted by me (3pts min.). @ -As above X-rays interpreted by me (1pt min.). @ -CXR with no consolidative changes or pleural effusions. Limited based on patient's positioning CT interpreted by me (1pt min.). @ -CT abdomen pelvis showing severe anasarca. Fatty liver. There is patchy consolidations noted to bilateral lung bases. No gallstones, hydronephrosis or bowel obstruction. U/S interpreted by me (1pt. min.). @ -None done What testing was considered but not performed or refused? (CT, X-rays, U/S, labs)? Why? @ -IV contrast refused by grandson and guardian. What meds were considered but not given or refused? Why? @ -None Did you discuss the management of the patient with other professionals (katheryn snider i.e. , PA, RANGE TECHNICIAN, lab, RT, psych nurse, manager social responsibility, noc technician, teacher, correctional officer, case resolution specialist)? Give summary @ -Case discussed with [facility] for admission Was smoking cessation discussed for >3mins.? @ -No Was critical care preformed (if so, how long)? @ -No Were there social determinants of health that impacted care today? How? (Homelessness, low income, unemployed, alcoholism, drug addiction, transportation, low edu. Level, literacy, decrease access to med. care, [facility], rehab)? @ -No Was there de-escalation of care discussed even if they declined (Discuss DNR or withdrawal of care, Hospice)? DNR status @ -No What co-morbidities impacted this encounter? (DM, HTN, Smoking, COPD, CAD, Cancer, CVA, ARF, Chemo, Hep., AIDS, mental health diagnosis, sleep apnea, morbid obesity)? @ -Advanced age, renal disease, dementia, HTN Was patient admitted / discharged? Hospital course, mention meds given and route, prescriptions, significant lab abnormalities, going to OR and other pertinent info. @ -Admitted. 89-year-old female presenting to the ER via EMS for evaluation of syncope. Upon rooming, history and physical exam completed. Vitals within acceptable limits. Patient appears very emaciated with dry flaky skin. She is laying in the position. Extremities are contracted. Patient is ANO x 0, baseline per caregiver. Patient does respond to pain as when palpating abdomen patient stated "why are you doing me like that". Laboratory studies obtained showed a WBC of 5.5. Sodium 141, testing 4.6, chloride 108. BUN of 24 with a creatinine 0.99 with a GFR is 51. Glucose 120. Magnesium 2.5. Amylase 301, appears to be chronically elevated. Lipase 410. Influenza, RSV, COVID- negative. Urinalysis concerning of infection with many bacteria, few WBC clumps and greater than 182 WBCs. Urine sent for cultrue. CT abdomen pelvis performed at that time showing severe anasarca and patchy consolidations of lung bases concerning of pneumonia. CT with IV contrast was refused by guardian and grandson. To avoid fluid overload patient given 500 mL IV fluid bolus in the emergency department. Patient was started on Rocephin and azithromycin for treatment of UTI and pneumonia. Blood cultures obtained. Admission considered and discussed with [facility] for IV antibiotics. Upon reevaluation, patient sleeping in exam room no signs of acute distress. Results discussed with grandson and guardian, at bedside, grandson is very hesitant on admission stating "this can be handled at home with primary care doctor and oral intake at home". I strongly recommended admission and guardian is agreeable for admission. Social work on consult as intermediate designer care facility placement may be indicated. Patient admitted in stable condition. Case discussed with ED attending, Dr. Hastings. Undiagnosed new problem with uncertain prognosis? @ -No Drug Therapy requiring intensive monitoring for toxicity (Heparin, Nitro, Insulin, Cardizem)? @ -No Were any procedures done? @ -No Diagnosis/symptom? @ -UTI/pneumonia Acute, or Chronic, or Acute on Chronic? @ -Acute Uncomplicated (without systemic symptoms) or Complicated (systemic symptoms)? @ -Complicated Side effects of treatment? @ -No Exacerbation, Progression, or Severe Exacerbation? @ -No Poses a threat to life or bodily function? How? (Chest pain, USA, DC, pneumonia, PE, COPD, DKA, ARF, appy, cholecystitis, CVA, Diverticulitis, Homicidal, Suicidal, threat to staff... and all critical care pts) @ -Yes, can lead sepsis and end organ dysfunction - Lab Data Result diagrams: 12/24/24 00:40 12/24/24 00:40 Lab Results 12/23/24 12/24/24 12/24/24 Range/Units 23:41 00:40 00:40 WBC 5.5 (3.8-10.6) k/uL RBC 4.30 (3.80-5.40) m/uL Hgb 13.1 (11.4-16.0) gm/dL Hct 42.5 (34.0-46.0) % MCV 98.8 (80.0-100.0) fL MCH 30.4 (25.0-35.0) pg MCHC 30.7 L (31.0-37.0) g/dL RDW 13.4 (11.5-15.5) % Plt Count 136 L (150-450) k/uL MPV 7.9 Neutrophils % 75 % Lymphocytes % 18 % Monocytes % 5 % Eosinophils % 1 % Basophils % 0 % Neutrophils # 4.1 (1.3-7.7) k/uL Lymphocytes # 1.0 (1.0-4.8) k/uL Monocytes # 0.3 (0-1.0) k/uL Eosinophils # 0.0 (0-0.7) k/uL Basophils # 0.0 (0-0.2) k/uL Hypochromasia Slight Sodium 141 (137-145) mmol/L Potassium 4.6 (3.5-5.1) mmol/L Chloride 108 H (98-107) mmol/L Carbon Dioxide 24 (22-30) mmol/L Anion Gap 9 mmol/L BUN 24 H (7-17) mg/dL Creatinine 0.99 (0.52-1.04) mg/dL Est GFR (CKD-EPI)AfAm 59 (>60 ml/min/1.73 sqM) Est GFR (CKD-EPI)NonAf 51 (>60 ml/min/1.73 sqM) Glucose 120 H (74-99) mg/dL POC Glucose (mg/dL) 110 (70-110) mg/dL POC Glu Manager Business Information ID Carolyn Oscar Plasma Lactic Acid [place] (0.7-2.0) mmol/L Calcium 9.6 (8.4-10.2) mg/dL Magnesium 2.5 H (1.6-2.3) mg/dL Total Bilirubin 0.5 (0.2-1.3) mg/dL AST 71 H (14-36) U/L ALT 63 H (4-34) U/L Alkaline Phosphatase 40 (38-126) U/L Troponin I (0.000-0.034) ng/mL Total Protein 7.0 (6.3-8.2) g/dL Albumin 3.6 (3.5-5.0) g/dL Amylase 301 H* (30-110) U/L Lipase 410 H (23-300) U/L Urine Color Urine Appearance (Clear) Urine pH (5.0-8.0) Ur Specific [place] (1.001-1.035) Urine Protein (Negative) Urine Glucose (UA) (Negative) Urine Ketones (Negative) Urine Blood (Negative) Urine Nitrite (Negative) Urine Bilirubin (Negative) Urine Urobilinogen (<2.0) mg/dL Ur Leukocyte Esterase (Negative) Urine RBC (0-5) /hpf Urine WBC (0-5) /hpf Urine WBC Clumps (None) /hpf Ur Squamous Epith Cells (0-4) /hpf Urine Bacteria (None) /hpf Hyaline Casts (0-2) /lpf Urine Mucus (None) /hpf Urine Yeast (Budding) (None) /hpf Influenza Type A (PCR) (Not Detectd) Influenza Type B (PCR) (Not Detectd) RSV (PCR) (Not Detectd) SARS-CoV-2 (PCR) (Not Detectd) 12/24/24 12/24/24 12/24/24 Range/Units 00:40 00:40 00:40 WBC (3.8-10.6) k/uL RBC (3.80-5.40) m/uL Hgb (11.4-16.0) gm/dL Hct (34.0-46.0) % MCV (80.0-100.0) fL MCH (25.0-35.0) pg MCHC (31.0-37.0) g/dL RDW (11.5-15.5) % Plt Count (150-450) k/uL MPV Neutrophils % % Lymphocytes % % Monocytes % % Eosinophils % % Basophils % % Neutrophils # (1.3-7.7) k/uL Lymphocytes # (1.0-4.8) k/uL Monocytes # (0-1.0) k/uL Eosinophils # (0-0.7) k/uL Basophils # (0-0.2) k/uL Hypochromasia Sodium (137-145) mmol/L Potassium (3.5-5.1) mmol/L Chloride (98-107) mmol/L Carbon Dioxide (22-30) mmol/L Anion Gap mmol/L BUN (7-17) mg/dL Creatinine (0.52-1.04) mg/dL Est GFR (CKD-EPI)AfAm (>60 ml/min/1.73 sqM) Est GFR (CKD-EPI)NonAf (>60 ml/min/1.73 sqM) Glucose (74-99) mg/dL POC Glucose (mg/dL) (70-110) mg/dL POC Glu Manager Business Information ID Plasma Lactic Acid [place] 1.8 (0.7-2.0) mmol/L Calcium (8.4-10.2) mg/dL Magnesium (1.6-2.3) mg/dL Total Bilirubin (0.2-1.3) mg/dL AST (14-36) U/L ALT (4-34) U/L Alkaline Phosphatase (38-126) U/L Troponin I <0.012 (0.000-0.034) ng/mL Total Protein (6.3-8.2) g/dL Albumin (3.5-5.0) g/dL Amylase (30-110) U/L Lipase (23-300) U/L Urine Color Urine Appearance (Clear) Urine pH (5.0-8.0) Ur Specific [place] (1.001-1.035) Urine Protein (Negative) Urine Glucose (UA) (Negative) Urine Ketones (Negative) Urine Blood (Negative) Urine Nitrite (Negative) Urine Bilirubin (Negative) Urine Urobilinogen (<2.0) mg/dL Ur Leukocyte Esterase (Negative) Urine RBC (0-5) /hpf Urine WBC (0-5) /hpf Urine WBC Clumps (None) /hpf Ur Squamous Epith Cells (0-4) /hpf Urine Bacteria (None) /hpf Hyaline Casts (0-2) /lpf Urine Mucus (None) /hpf Urine Yeast (Budding) (None) /hpf Influenza Type A (PCR) Not Detected (Not Detectd) Influenza Type B (PCR) Not Detected (Not Detectd) RSV (PCR) Not Detected (Not Detectd) SARS-CoV-2 (PCR) Not Detected (Not Detectd) 12/24/24 Range/Units 01:03 WBC (3.8-10.6) k/uL RBC (3.80-5.40) m/uL Hgb (11.4-16.0) gm/dL Hct (34.0-46.0) % MCV (80.0-100.0) fL MCH (25.0-35.0) pg MCHC (31.0-37.0) g/dL RDW (11.5-15.5) % Plt Count (150-450) k/uL MPV Neutrophils % % Lymphocytes % % Monocytes % % Eosinophils % % Basophils % % Neutrophils # (1.3-7.7) k/uL Lymphocytes # (1.0-4.8) k/uL Monocytes # (0-1.0) k/uL Eosinophils # (0-0.7) k/uL Basophils # (0-0.2) k/uL Hypochromasia Sodium (137-145) mmol/L Potassium (3.5-5.1) mmol/L Chloride (98-107) mmol/L Carbon Dioxide (22-30) mmol/L Anion Gap mmol/L BUN (7-17) mg/dL Creatinine (0.52-1.04) mg/dL Est GFR (CKD-EPI)AfAm (>60 ml/min/1.73 sqM) Est GFR (CKD-EPI)NonAf (>60 ml/min/1.73 sqM) Glucose (74-99) mg/dL POC Glucose (mg/dL) (70-110) mg/dL POC Glu Manager Business Information ID Plasma Lactic Acid [place] (0.7-2.0) mmol/L Calcium (8.4-10.2) mg/dL Magnesium (1.6-2.3) mg/dL Total Bilirubin (0.2-1.3) mg/dL AST (14-36) U/L ALT (4-34) U/L Alkaline Phosphatase (38-126) U/L Troponin I (0.000-0.034) ng/mL Total Protein (6.3-8.2) g/dL Albumin (3.5-5.0) g/dL Amylase (30-110) U/L Lipase (23-300) U/L Urine Color Light Red Urine Appearance Turbid H (Clear) Urine pH 5.5 (5.0-8.0) Ur Specific [place] 1.017 (1.001-1.035) Urine Protein 1+ H (Negative) Urine Glucose (UA) Negative (Negative) Urine Ketones Negative (Negative) Urine Blood Large H (Negative) Urine Nitrite Negative (Negative) Urine Bilirubin Negative (Negative) Urine Urobilinogen <2.0 (<2.0) mg/dL Ur Leukocyte Esterase Large H (Negative) Urine RBC >182 H (0-5) /hpf Urine WBC >182 H (0-5) /hpf Urine WBC Clumps Few H (None) /hpf Ur Squamous Epith Cells 27 H (0-4) /hpf Urine Bacteria Many H (None) /hpf Hyaline Casts 115 H (0-2) /lpf Urine Mucus Occasional H (None) /hpf Urine Yeast (Budding) Many H (None) /hpf Influenza Type A (PCR) (Not Detectd) Influenza Type B (PCR) (Not Detectd) RSV (PCR) (Not Detectd) SARS-CoV-2 (PCR) (Not Detectd) - Radiology Data Radiology results: report reviewed, image reviewed Disposition Clinical Impression: UTI (urinary tract infection), Pneumonia Disposition: ADMITTED IP TO THIS HOSP Condition: Stable Time of Disposition: 04:06
[2024-12-24] MEDS: SODIUM CHLORIDE 0.9% 500 ML 500 ML IV ONE (00:31)
[2024-12-24 01:00] LABS: Basophils % (A) 0 %; Eosinophils % (A) 1 %; HCT 42.5 % (34.0-46.0); HGB 13.1 gm/dL (11.4-16.0); Hypochromasia Slight; Lymphocytes % (A) 18 %; MCH 30.4 pg (25.0-35.0); MCHC 30.7 g/dL (31.0-37.0); MCV 98.8 fL (80.0-100.0); Mean Platelet Volume 7.9; Monocytes # (A) 0.3 k/uL (0-1.0); Monocytes % (A) 5 %; Neutrophils # (A) 4.1 k/uL (1.3-7.7); Neutrophils % (A) 75 %; Platelet Count 136 k/uL (150-450); RDW 13.4 % (11.5-15.5); WBC 5.5 k/uL (3.8-10.6)
[2024-12-24 01:21] LABS: ALT 63 U/L (4-34); AST 71 U/L (14-36); African American GFR (CKD) 59 (>60 ml/min/1.73 sqM); Albumin 3.6 g/dL (3.5-5.0); Alkaline Phosphatase 40 U/L (38-126); Anion Gap 9 mmol/L; Blood Urea Nitrogen 24 mg/dL (7-17); Calcium 9.6 mg/dL (8.4-10.2); Carbon Dioxide 24 mmol/L (22-30); Chloride 108 mmol/L (98-107); Glucose 120 mg/dL (74-99); Lipase 410 U/L (23-300); Magnesium 2.5 mg/dL (1.6-2.3); Non-African American GFR(CKD) 51 (>60 ml/min/1.73 sqM); Potassium 4.6 mmol/L (3.5-5.1); Sodium 141 mmol/L (137-145); Total Bilirubin 0.5 mg/dL (0.2-1.3)
[2024-12-24 01:35] LABS: Appearance,Urine Turbid (Clear); Bacteria,Urine Many /hpf; Bilirubin,Urine Negative (Negative); Blood,Urine Large (Negative); Budding Yeast,Urine Many /hpf; Color,Urine Light Red; Glucose,Urine (UA) Negative (Negative); Hyaline Casts,Urine 115 /lpf (0-2); Ketones,Urine Negative (Negative); Leukocyte Esterase,Urine Large (Negative); Mucus,Urine Occasional /hpf; Nitrite,Urine Negative (Negative); PH, Urine 5.5 (5.0-8.0); Protein,Urine 1+ (Negative); RBC,Urine >182 /hpf (0-5); Specific Gravity,Urine 1.017 (1.001-1.035); Squamous Epithelial Cell,Urine 27 /hpf (0-4); Urobilinogen,Urine <2.0 mg/dL (<2.0); WBC,Urine >182 /hpf (0-5)
[2024-12-24 01:37] LABS: Amylase 301 U/L (30-110)
[2024-12-24 01:39] LABS: Influenza A Not Detected (Not Detectd); Influenza B Not Detected (Not Detectd); RSV Not Detected (Not Detectd)
--- NOTE | 2024-12-24 02:26 | XR ---
EXAM: XR Chest, 1 View CLINICAL HISTORY: ITS.REASON XR Reason: poss syncope TECHNIQUE: Frontal view of the chest. COMPARISON: 08/06/2024. FINDINGS: Lungs: Unremarkable. No consolidative changes or pleural effusions. Pleural space: See above. Heart: Heart is normal in size. No cardiomegaly. Mediastinum: Unremarkable. Normal mediastinal contour. Bones/joints: Osteopenia. Osseous structures and soft tissues are unremarkable. No acute fracture. Other findings: Patient is rotated left of midline. IMPRESSION: 1. Limited evaluation due to patient positioning and technical factors. 2. No consolidative changes or pleural effusions.
--- NOTE | 2024-12-24 02:28 | CT ---
EXAM: CT Abdomen and Pelvis Without Intravenous Contrast CLINICAL HISTORY: ITS.REASON CT Reason: vomiting, diarrhea abd pain TECHNIQUE: Axial computed tomography images of the abdomen and pelvis without intravenous contrast. CTDI is 5.5 mGy and DLP is 269.7 mGy-cm. This CT exam was performed using one or more of the following dose reduction techniques: automated exposure control, adjustment of the mA and/or kV according to patient size, and/or use of iterative reconstruction technique. COMPARISON: 12/23/2023. FINDINGS: Lung bases: Patchy consolidation is noted near the lung bases differential etiologies which includes pneumonia. Clinical correlation is advised. There is COPD. Heart: Mild cardiomegaly. ABDOMEN: Liver: Fatty liver. Gallbladder and bile ducts: Unremarkable. No ductal dilation. No gallstones. Pancreas: See below. Spleen: Spleen is normal in contour. Adrenals: The region of the adrenal glands, the head, body, tail of the pancreas are suboptimally assessed but grossly unremarkable. Kidneys and ureters: Unremarkable. No hydronephrosis. Stomach and bowel: Moderate quantity of ingested material in the stomach. No obstruction. No mucosal thickening. PELVIS: Appendix: No findings to suggest acute appendicitis. Bladder: Bladder is underdistended. No stones. Reproductive: Unremarkable as visualized. ABDOMEN and PELVIS: Intraperitoneal space: Unremarkable. No free air. No significant fluid collection. Bones/joints: Advanced degenerative disc disease of the thoracolumbar spine. No acute fracture. No dislocation. No spondylolysis. Soft tissues: Severe anasarca. Suboptimal ablation of the viscera due to paucity of mesenteric fat and lack of oral and intravenous contrast. Ischiorectal fat is clean. Vasculature: Atherosclerotic disease and ASCVD. Atherosclerotic disease of the abdominal aorta extending to the common iliac arteries without aneurysmal dilatation. Lymph nodes: Unremarkable. No retroperitoneal lymphadenopathy. IMPRESSION: 1. Markedly limited in assessment of the viscera due to lack of oral and intravenous contrast administration, paucity of mesenteric fat, and diffuse anasarca. Clinical correlation is therefore highly advised. 2. Fatty liver. 3. No gallstones. 4. No hydronephrosis. 5. No bowel obstruction.
[2024-12-24] MEDS ORDERED: NALOXONE 0.4 MG/ML 1 ML VIAL IV PRN (03:30)
[2024-12-24] MEDS ORDERED: ONDANSETRON 4 MG/2 ML VIAL IVP PRN (03:30)
[2024-12-24] MEDS ORDERED: ACETAMINOPHEN TAB 325 MG TAB PO PRN (03:30)
[2024-12-24] MEDS: AZITHROMYCIN 500 MG TAB PO STA (04:42)
[2024-12-24] MEDS: SODIUM CHLORIDE 0.9% 1,000 ML IV SCH (04:43)
--- NOTE | 2024-12-24 16:15 | CT ---
EXAMINATION TYPE: CT brain wo con DATE OF EXAM: 12/24/2024 4:08 PM COMPARISON: Prior CT head 10/08/2017. CLINICAL INDICATION: Female, 89 years old with history of stroke, AMS TECHNIQUE: Brain: Axial CT images of the brain were obtained with coronal and sagittal reformats created and rev iewed. Contrast used: None. Oral contrast used: None. CT DLP: 1129.30 mGycm, Automated exposure control for dose reduction was used. FINDINGS: Brain: Extra-axial spaces: No abnormal extra-axial fluid collections. Ventricular system: Dilatation in proportion to cerebral atrophy. Cerebral parenchyma: No acute intraparenchymal hemorrhage or mass effect. The calvillo-white junction is well differentiated. Scattered hypoattenuating areas are seen within the white matter. Cerebellum: Unremarkable. Mass effect: No evidence of midline shift. Intracranial vasculature: unremarkable Soft tissues: Normal. Calvarium/osseous structures: No depressed skull fracture. Paranasal sinuses and mastoid air cells: Mild scattered paranasal sinus disease. Visualized orbits: The lenses are surgically removed from the globes. IMPRESSION: No acute intracranial process. [facility], , 12/24/2024 4:12 PM
[2024-12-24] MEDS: carvediloL 6.25 MG TAB PO SCH (17:47)
[2024-12-24] MEDS: HEPARIN SODIUM,PORCINE 5,000 UNIT/ML 1 ML VIAL SQ SCH (20:02)
--- NOTE | 2024-12-25 01:47 | HP ---
HISTORY AND PHYSICAL CHIEF COMPLAINTS: Syncope as well as nausea, vomiting, diarrhea, and possible UTI. HISTORY OF PRESENT ILLNESS: This is an 89-year-old woman with a past medical history of multiple medical problems including dementia, hypertension, was being taken care of with a caregiver. The patient apparently developed nausea, vomiting, diarrhea. The patient passed out while in the toilet, and the patient was taken to [facility]. Currently, the patient unable to give a coherent history. The amylase and lipase are elevated and possible UTI is also considered. There is no history of any fever, rigors, chills at this time. A CT scan of the abdomen and pelvis showed some malnutrition. PAST MEDICAL HISTORY: Reviewed include dementia and hypertension. Rest of the chart is reviewed. HOME MEDICATIONS: dose and rest of medications noted. SOCIAL HISTORY: Could not be taken. FAMILY HISTORY: Could not be taken. REVIEW OF SYSTEMS: Could not be taken. PHYSICAL EXAM: VITAL SIGNS: Pulse is 96, blood pressure 136/80, respirations 14. HEENT: Conjunctivae are normal. NECK: No jugular venous distention. No carotid bruit. CARDIOVASCULAR: S1, S2 muffled. RESPIRATION: Breath sounds diminished at the bases. ABDOMEN: Soft, scaphoid. LEGS: No edema. No cyanosis, diffusely weak. LABORATORY DATA: Reviewed. ASSESSMENT: 1. Nausea, vomiting, diarrhea, syncope, possibly secondary to severe dehydration. 2. Severe malnutrition with BMI of 13. 3. Elevated amylase and lipase, possibly acute pancreatitis. 4. Acute UTI with sepsis, possibly present on admission. 5. Dementia. 6. Hypertension. 7. Multiple complex medical issues. RECOMMENDATION: This 89-year-old woman presented with multiple complex medical issues, we will monitor the patient closely. I recommend empiric antibiotics and cultures. Nutrition/ dietary consultation advised regarding the malnutrition. PT/OT evaluation. Social work consult. Resume the home medications. DVT prophylaxis. Overall prognosis extremely guarded because of multiple complex medical issues. Further recommendations to follow. See orders for further details. MMODL / IJN: [id number] / MTDD
[2024-12-25] MEDS: PANTOPRAZOLE 40 MG TABLET PO SCH (08:25)
[2024-12-25] MEDS: DONEPEZIL 10 MG TAB PO SCH (08:25)
[2024-12-25 09:30] LABS: Basophils # (A) 0.02 X 10*3/uL (0.00-0.10); Basophils % (A) 0.2 %; Eosinophils # (A) 0.03 X 10*3/uL (0.04-0.35); Eosinophils % (A) 0.4 %; HCT 30.7 % (37.2-46.3); HGB 9.6 g/dL (12.0-15.0); Lymphocytes # (A) 1.14 X 10*3/uL (0.90-5.00); Lymphocytes % (A) 13.7 %; MCH 30.8 pg (27.0-32.0); MCHC 31.3 g/dL (32.0-37.0); MCV 98.4 FL (80.0-97.0); Monocytes # (A) 0.61 X 10*3/uL (0.20-1.00); Monocytes % (A) 7.3 %; NRBC Per 100 WBC 0 X 10*3/uL (0.00-0.01); Neutrophils # (A) 6.52 X 10*3/uL (1.80-7.70); Platelet Count 109 X 10*3/uL (140-440); RBC 3.12 X 10*6/uL (4.10-5.20); RDW 13.7 % (11.5-14.5); WBC 8.35 X 10*3/uL (4.50-10.00)
[2024-12-25 10:18] LABS: ALT 32 U/L (8-44); AST 31 U/L (13-35); Albumin 2.8 g/dL (3.8-4.9); Albumin/Globulin Ratio 1.17 Ratio (1.60-3.17); Alkaline Phosphatase 36 U/L (41-126); Amylase 236 U/L (23-121); Blood Urea Nitrogen 24.6 mg/dL (9.0-27.0); Calcium 8.3 mg/dL (8.7-10.3); Carbon Dioxide 22.6 mmol/L (21.6-31.8); Chloride 113 mmol/L (96-109); Globulin 2.4 g/dL (1.6-3.3); Glucose 106 mg/dL (70-110); Lipase 72 U/L (14-63); Potassium 4.4 mmol/L (3.5-5.5); Sodium 142 mmol/L (135-145); Total Bilirubin 0.2 mg/dL (0.3-1.2); Total Protein 5.2 g/dL (6.2-8.2)
--- NOTE | 2024-12-26 00:26 | PN ---
PROGRESS NOTE DATE OF SERVICE: 12/25/2024 SUBJECTIVE: This is an 89-year-old woman, who was admitted with nausea, vomiting, syncope, and dehydration and severe malnutrition. The patient was apparently taking nutritional supplements and Ensure, which has been stopped because of concerns of kidney disease, but currently, the creatinine is 1.2. There is no history of any fever or rigors. Her amylase and lipase are mildly elevated. CAT scan did not show acute abnormality. UA showed possible UTI. PAST MEDICAL HISTORY: Reviewed. REVIEW OF SYSTEMS: Could not be taken as the patient is confused. CURRENT MEDICATIONS: Reviewed. PHYSICAL EXAMINATION: VITAL SIGNS: Pulse is 84, blood pressure 140/76, respirations 16. CHEST: A few scattered rhonchi. ABDOMEN: Soft and nontender. NERVOUS SYSTEM: Diffusely weak. LABORATORY DATA: Hemoglobin 9.6, otherwise CT of the brain which I reviewed personally showed no acute process, significant dementia present. ASSESSMENT: 1. Nausea, vomiting, diarrhea, syncope, possibly causing severe dehydration. 2. Severe malnutrition with a BMI of 30. 3. Elevated amylase and lipase, possibly mild acute pancreatitis, improving. 4. Acute urinary tract infection with sepsis, possibly present on admission, on empiric antibiotics. 5. Severe dementia. 6. Hypertension. 7. Multiple complex medical issues. RECOMMENDATIONS: Recommended to continue current management and continue symptomatic treatment. I would recommend to continue with dietary supplements. Otherwise, repeat labs. Continue with empiric antibiotics. Once the patient is able to take p.o. food and sensorium improves, the patient may be able to be discharged in the next 24 to 48 hours. MMODL / IJN: [id number] /
[2024-12-26 07:24] LABS: African American GFR (CKD) 82 (>60 ml/min/1.73 sqM); Anion Gap 6 mmol/L; Blood Urea Nitrogen 25 mg/dL (7-17); Calcium 8.4 mg/dL (8.4-10.2); Carbon Dioxide 20 mmol/L (22-30); Chloride 113 mmol/L (98-107); Glucose 91 mg/dL (74-99); Non-African American GFR(CKD) 71 (>60 ml/min/1.73 sqM); Sodium 139 mmol/L (137-145)
[2024-12-26 07:25] VITALS: RESP 18; TEMP 97.3
[2024-12-26 07:32] LABS: Potassium 5.3 mmol/L (3.5-5.1)
[2024-12-26 09:11] LABS: Basophils % (A) 1 %; Eosinophils % (A) 1 %; HCT 45.9 % (34.0-46.0); HGB 13.6 gm/dL (11.4-16.0); Hypochromasia Moderate; Lymphocytes % (A) 18 %; MCHC 29.7 g/dL (31.0-37.0); MCV 101.1 fL (80.0-100.0); Macrocytosis Slight; Mean Platelet Volume 8.5; Monocytes % (A) 6 %; Neutrophils % (A) 73 %; Platelet Count 146 k/uL (150-450); RBC 4.54 m/uL (3.80-5.40); RDW 13.7 % (11.5-15.5); WBC 7.3 k/uL (3.8-10.6)
[2024-12-26 09:12] LABS: Basophils # (A) 0.1 k/uL (0-0.2); Lymphocytes # (A) 1.3 k/uL (1.0-4.8); Monocytes # (A) 0.4 k/uL (0-1.0); Neutrophils # (A) 5.3 k/uL (1.3-7.7)
[2024-12-26] MEDS: SODIUM ZIRCONIUM CYCLOSILICATE 10 GM PACKET PO SCH (12:37)
[2024-12-26 13:06] VITALS: BP 142/95; PULSE 53
== END 2024-12-26 14:37 | disposition home or self-care (01) ==
LOC: EC 23:30 → 5NMEDONC 12-24 03:30
PROVIDERS: ADMIT Hospitalist; ATTEND Hospitalist
DX: R11.2 Nausea with vomiting, unspecified (principal); R19.7 Diarrhea, unspecified; R55 Syncope and collapse; N39.0 Urinary tract infection, site not specified; A41.9 Sepsis, unspecified organism; J18.9 Pneumonia, unspecified organism; R74.8 Abnormal levels of other serum enzymes; I10 Essential (primary) hypertension; F03.90 Unspecified dementia, unspecified severity, without behavioral disturbance, psychotic disturbance, mood disturbance, and anxiety; E43 Unspecified severe protein-calorie malnutrition; Z68.1 Body mass index [BMI] 19.9 or less, adult; Z11.52 Encounter for screening for COVID-19; Z79.899 Other long term (current) drug therapy
CPT/HCPCS: 96365; 96366 ×3; 96372; 96361; 99285; 36415 ×2; 93005; 80053 ×2; 80048; 82150 ×2; 83605; 83690 ×2; 83735; 84484; 85025 ×3; 81001; 87040; 87086; 87636; 71045; 70450; 74176; G0378 ×3; J1644; J0696 ×3